=== PATIENT | male | born 1935 | race Caucasian/White ===

== ENCOUNTER 2017-03-21 16:05 | Emergency (ER) | payer MEDICARE, OTHER ==
[2017-03-21 16:05] VITALS: BMI 23.9
== END 2017-03-21 17:13 | disposition left against medical advice (07) ==
LOC: H.ER 16:05
DX: Z02.89 Encounter for other administrative examinations (principal)

== ENCOUNTER 2018-03-03 21:43 | Emergency (ER) | payer MEDICARE, OTHER ==
[2018-03-03 21:43] VITALS: BMI 23.9
[2018-03-03 21:48] VITALS: TEMP 98
--- NOTE | 2018-03-03 22:34 | ED PDOC ---
Lower Extremity Pain/Injury Chief Complaint (Provider): LE bleeding History Per: Patient History/Exam Limitations: no limitations Onset/Duration Of Symptoms: Mins Current Symptoms Are (Timing): Gone Now Additional History Per: Patient Additional Complaint(s): 82 y/o m with Hx of varicous veins presents to hosp c/o bleeding from l/leg small abrasion that he suspects was self inflicted while he was removing his elastic socks tonight. At the time of arrival to ED bleeding was almost resolved and was resolved at the time he was examined. He denies taking any blood thinners or other recent trauma to that leg. He felt 1 week ago and hit his R/knee which still hurts slightly but denies pain in L/LE. Denies CP, SOB, vomiting, nausea, dizziness, headache. Patient has not followed with Payroll Analyst and has Hx of varicous veins for many years. Denies calf pain <Tony Richardson - Last Filed: 03/04/18 00:34> <Pio Forbes - Last Filed: 03/04/18 01:59> Time Seen by Provider: 03/03/18 22:01 Chief Complaint (Nursing): Wound Check Supervising Attending Note - Supervising Attending Note The Documented history was done by the: Physician Lead Systems Analyst The documented physical exam was done by the: Physician Lead Systems Analyst - Attestation: I have personally seen and examined this patient.: Yes I have fully participated in the care of the patient.: Yes I have reviewed all pertinent clinical information, including history, physical exam and plan: Yes <Pio Forbes - Last Filed: 03/04/18 01:59> Past Medical History Reviewed: Nursing Documentation, Vital Signs Vital Signs: Last Vital Signs Temp 98.0 F 03/03/18 21:47 Pulse 93 H 03/03/18 21:47 Resp 16 03/03/18 21:47 BP 168/80 H 03/03/18 21:47 Pulse Ox 96 03/03/18 21:47 - Medical History PMH: Pneumonia - Surgical History Surgical History: Hernia Repair - Family History Family History: States: Unknown Family Hx <Tony Richardson - Last Filed: 03/04/18 00:34> Vital Signs: Last Vital Signs Temp 98.0 F 03/03/18 21:47 Pulse 88 03/04/18 00:13 Resp 18 03/04/18 00:13 BP 143/81 03/04/18 00:13 Pulse Ox 96 03/04/18 00:35 <Pio Forbes - Last Filed: 03/04/18 01:59> - Home Medications Home Medications: Ambulatory Orders Medication Instructions Recorded Albuterol HFA [Ventolin HFA 90 2 puff IH [id number] PRN #1 inh 12/20/14 mcg/actuation (8 g)] Azithromycin [Zithromax Z-Chicho] 250 mg PO DAILY #1 packet 12/20/14 Tobramycin [Tobrex] 5 ml TOP QID #1 bottle 09/13/16 - Allergies Allergies/Adverse Reactions: Allergies Allergy/AdvReac Type Severity Reaction Status Date / Time No Known Allergies Allergy Verified 03/03/18 21:47 Review of Systems ROS Statement: Except As Marked, All Systems Reviewed And Found Negative Cardiovascular: Positive for: Other (varicous veins) Skin: Positive for: Other (Bleeding/Abrasion) <Tony Richardson - Last Filed: 03/04/18 00:34> Physical Exam - Physical Exam Appears: Positive for: Well, No Acute Distress Skin: Positive for: Warm. Negative for: Normal Color (stasis dermatitis changes both foot) Eye Exam: Positive for: PERRL Cardiovascular/Chest: Positive for: Regular Rate, Rhythm, Edema, Murmur, Other ( Varicous veins) Respiratory: Positive for: Normal Breath Sounds. Negative for: Decreased Breath Sounds, Crackles, Rales, Rhonchi, Wheezing Pulses-Dorsalis Pedis (L): 2+ Pulses-Dorsalis Pedis (R): 2+ Pulses-Post. Tibialis (L): 2+ Pulses-Post. Tibialis (R): 2+ Gastrointestinal/Abdominal: Positive for: Bowel Sounds, Soft. Negative for: Tenderness, Distended, Guarding, Rebound Extremity: Positive for: Pedal Edema, Capillary Refill, Other (0.5 cm abrasion above L/internal malleolus. Tortuous Varicous veins B/L). Negative for: Calf Tenderness Neurologic/Psych: Positive for: Alert, Oriented. Negative for: Motor/Sensory Deficits <Tony Richardson - Last Filed: 03/04/18 00:34> - ECG O2 Sat by Pulse Oximetry: 96 - Progress ED Course And Treament: Evaluated by Podiatry resident Wound care done at ED to F/U next week with Podiatry as outpatient Stable to DC home <Tony Richardson - Last Filed: 03/04/18 00:34> Medical Decision Making Medical Decision Makin82 y/o M with Hx of peripheral venous insufficiency presents with bleeding from self inflicted accidental abrasion Bleeding resolved Patient has no co-morbidities Need podiatry eval and F/U as outpatient Podiatry consult for ED eval Accucheck Elevated systolic BP No hx of HTN Not on any meds F/U as outpatient <Tony Richardson - Last Filed: 03/04/18 00:34> Disposition - Disposition Disposition Time: 00:15 <Tony Richardson - Last Filed: 03/04/18 00:34> <Pio Forbes - Last Filed: 03/04/18 01:59> - Clinical Impression Clinical Impression: Varicose vein of leg - Disposition [facility]errals: [facility] [Outside] Condition: STABLE Instructions: Varicose Veins and Other Vein Disease in the Legs Forms: [facility] (Italian) Print Language: YI
--- NOTE | 2018-03-03 23:27 | CP.PCM.CON ---
History of Present Illness - History of Present Illness History of Present Illness: Podiatry Consult Dr. Gore 82 y.o male with no PMH seen and evaluated in the ED for left ankle ulceration. Patient is seen at bedside with grandkijosh and cecilio's boyfriend. Patient reports at 8:30pm today as he was taking off his compression stockings his right toe nail nicked the inside of his left ankle. Since then he has been bleeding. Patient reports very minimal pain with touching. No pain with resting. Denies nausea, vomiting, shortness of breath, chest pains, chills or fever. Reports that he saw his PMD yesterday. PMD: Dr. Humphries in [place] PMH: varcoise veins PSH: left hernia repair SH: former smoker 1-2 packs of cigarettes per day for 71 years, drinks socially , denies illicit drug use ALL: NKDA, seasonal allergies FH: none MEDS: for seasonal allergies Past Patient History - Past Social History Smoking Status: Never Smoked - CARDIAC Hx Peripheral Vascular Disease: Yes Other/Comment: Hx varicose veins - PULMONARY Hx Pneumonia: Yes - HEENT Other/Comment: Seasonal Allergies - PSYCHIATRIC Hx Substance Use: No - SURGICAL HISTORY Hx Surgeries: Yes Hx Herniorrhaphy: Yes (Left Inguinal Hernia repair) - ANESTHESIA Hx Anesthesia: Yes Hx Anesthesia Reactions: No Hx Malignant Hyperthermia: No Meds Allergies/Adverse Reactions: Allergies Allergy/AdvReac Type Severity Reaction Status Date / Time No Known Allergies Allergy Verified 03/03/18 21:47 Physical Exam - Constitutional Appears: Well, Non-toxic, No Acute Distress - Extremities Exam Extremities exam: Negative for: calf tenderness Additional comments: VASC: DP and PT 2/4 bilaterally, temperature gradient WNL, hair present, varciose veins to the entire LE, Left ankle girth bigger (Per patient has appeared like this for many years) ORTHO: very minimal pain with palpation to the superficial abrasion, MM is 5/5 in all four compartments, ankle ROM WNL NEURO: gross and protective sensation intact DERM: tiny ulceration on the medial aspect of supramalleolar ankle measuring approximately .5 cm x .5 cm x .1 cm, wound base is granular, no abscess, no fluctanuance, no erythema , no streaking, no tunneling, no undermining, no active bleeding noted during bedside evaluation - Neurological Exam Neurological exam: Alert, Oriented x3 - Psychiatric Exam Psychiatric exam: Normal Affect, Normal Mood Results - Vital Signs Recent Vital Signs: Last Vital Signs Temp 98.0 F 03/03/18 21:47 Pulse 93 H 03/03/18 21:47 Resp 16 03/03/18 21:47 BP 168/80 H 03/03/18 21:47 Pulse Ox 96 03/03/18 22:44 - Labs Labs: Laboratory Results - last 24 hr 03/03/18 22:50 POC Glucose (mg/dL) 87 Assessment & Plan - Assessment and Plan (Free Text) Assessment: 82 y.o male with no PMH seen and evaluated in the ED for bleeding left ankle abrasion secondary to toenail cut Plan: Patient seen and evaluated Discussed plan in detail with attending Dr. Gore Ulceration cleansed with saline solution, xeroform, dsd, and kerlix ALYCE applied to the right lower extremity for compression Instructed patient to continue to wear compression stockings to Left lower extremity Patient to follow up with Dr. Gore in wound care clinic Will call to make an appointment Advised patient to bring compression stockings to clinic for evaluation Instructed to keep dressing c/d/i. Do not get wet Instructed to elevate lower extremity Thank you for allowing us to take part in patient's care
[2018-03-04 00:15] VITALS: BP 143/81; PULSE 88; RESP 18
[2018-03-04 00:34] VITALS: O2SAT 96
== END 2018-03-04 00:18 | disposition home or self-care (01) ==
LOC: H.ER 21:43
DX: I86.8 Varicose veins of other specified sites (principal); I73.9 Peripheral vascular disease, unspecified